=== PATIENT | male | born 1985 | race Hispanic/Latino ===

== ENCOUNTER 2021-06-20 15:30 | Observation (INO) | payer SELFPAY ==
[2021-06-20] MEDS ORDERED: MORPHINE 4 MG/1 ML INJ IV ONE (16:21)
[2021-06-20] MEDS ORDERED: SODIUM CHLORIDE 0.9% 1000 ML 1,000 ML IV ONE (16:21)
[2021-06-20] MEDS ORDERED: dexAMETHasone 20 MG/5 ML VIAL IV ONE (16:38)
--- NOTE | 2021-06-20 16:39 | Emergency Department Report ---
HPI - General Chief Complaint: Dental/Oral Time Seen by Provider: 06/20/21 16:17 - HPI HPI: This is a 36-year-old male presents to the emergency department with complaint of right-sided facial and neck pain and swelling that has been going on and getting progressively worse since yesterday. Patient denies any past medical history. He is a tobacco smoker. He has not taken anything for symptoms prior to presentation. He has pain and some difficulty with swallowing secondary to the facial and neck swelling. The facial swelling is mostly around the right lower jaw and travels down into the right side of his neck. No fever. No recent travel or sick contacts at home. ED Past Medical Hx - Past Medical History Previous Medical History?: No - Surgical History Past Surgical History?: No - Medications Home Medications: Home Medications Medication Instructions Recorded Confirmed Last Taken Type Clindamycin [Clindamycin CAP] 300 mg PO Q6H #28 capsule 06/20/21 Unknown Rx Sulfamethoxazole/Trimethoprim 1 each PO BID #14 tablet 06/20/21 Unknown Rx [Bactrim DS TAB] ED Review of Systems ROS: Stated complaint: Facial Swelling Other details as noted in HPI Comment: All other systems reviewed and negative Constitutional: denies: chills, fever Eyes: denies: eye pain, vision change ENT: throat pain, other (right sided facial and neck pain/swelling). denies: ear pain Respiratory: denies: cough, shortness of breath Cardiovascular: denies: chest pain, palpitations Gastrointestinal: denies: abdominal pain, vomiting Musculoskeletal: denies: back pain, arthralgia Skin: denies: rash, lesions Neurological: denies: headache, weakness Physical Exam - Physical Exam Vital Signs: Vital Signs 06/20/21 15:31 Temperature 97.1 F L Pulse Rate 106 H Respiratory 16 Rate O2 Sat by Pulse 100 Oximetry Physical Exam: GENERAL: The patient is well-developed well-nourished. HENT: Normocephalic. Atraumatic. Patient has moist mucous membranes. Poor dentition. No drooling or trismus. There is tenderness to palpation and swelling along the right mandible. EYES: Extraocular motions are intact. NECK: Supple. Trachea is midline. There is tenderness to palpation and swelling to the right superior lateral, submandibular and submental portions of the neck. CHEST/LUNGS: Clear to auscultation. There is no respiratory distress noted. HEART/CARDIOVASCULAR: Regular. There is mild tachycardia. There is no murmur. ABDOMEN: Abdomen is soft, nontender. Patient has normal bowel sounds. SKIN: Skin is warm and dry. NEURO: The patient is awake, alert, and oriented. The patient is cooperative. The patient has no focal neurologic deficits. Normal speech. MUSCULOSKELETAL: There is no tenderness or deformity. There is no limitation range of motion. ED Course Vital Signs 06/20/21 15:31 Temperature 97.1 F L Pulse Rate 106 H Respiratory 16 Rate O2 Sat by Pulse 100 Oximetry ED Medical Decision Making - Lab Data Result diagrams: 06/20/21 16:42 06/20/21 16:42 Lab Results 06/20/21 06/20/21 Range/Units 16:42 16:42 WBC 16.2 H (4.5-11.0) K/mm3 RBC 4.26 (3.65-5.03) M/mm3 Hgb 12.8 (11.8-15.2) gm/dl Hct 40.2 (35.5-45.6) % MCV 95 H (84-94) fl MCH 30 (28-32) pg MCHC 32 (32-34) % RDW 13.1 L (13.2-15.2) % Plt Count 222 (140-440) K/mm3 Lymph % (Auto) 8.3 L (13.4-35.0) % Castro % (Auto) 7.4 H (0.0-7.3) % Eos % (Auto) 0.6 (0.0-4.3) % Baso % (Auto) 0.2 (0.0-1.8) % Lymph # (Auto) 1.3 (1.2-5.4) K/mm3 Castro # (Auto) 1.2 H (0.0-0.8) K/mm3 Eos # (Auto) 0.1 (0.0-0.4) K/mm3 Baso # (Auto) 0.0 (0.0-0.1) K/mm3 Seg Neutrophils % 83.5 H (40.0-70.0) % Seg Neutrophils # 13.6 H (1.8-7.7) K/mm3 Sodium 135 L (137-145) mmol/L Potassium 3.8 (3.6-5.0) mmol/L Chloride 101.3 (98-107) mmol/L Carbon Dioxide 23 (22-30) mmol/L Anion Gap 15 mmol/L BUN 9 (9-20) mg/dL Creatinine 1.0 (0.8-1.3) mg/dL Estimated GFR > 60 ml/min BUN/Creatinine Ratio 9 % Glucose 139 H (75-100) mg/dL Calcium 8.5 (8.4-10.2) mg/dL - EKG Data -: EKG Interpreted by Sc EKG shows normal: sinus rhythm, axis, intervals, QRS complexes, ST-T waves Rate: normal - EKG Data When compared to previous EKG there are: previous EKG unavailable Interpretation: normal EKG - Radiology Data Radiology results: report reviewed CT facial bones w con INDICATION: right sided facial jaw swelling. TECHNIQUE: CT face. All CT scans at this location are performed using CT dose reduction for ALARA by means of automated exposure control. COMPARISON: None. FINDINGS: Facial bones: Central midface: Nasal bones: No fracture; perpendicular plate of ethmoid: No fracture; no soft tissue swelling around the nasal septal cartilage Nasoorbitoethmoid: Normal Lateral midface: Orbit: Normal Zygomaticomaxillary complex: Normal Zygomatic arch: Normal Mandible: Multiple root abscesses any: No fracture TMJ: Sinuses: Paranasal sinuses and mastoid air cells are essentially clear. Orbits: Globes are intact. Additional findings:No other significant abnormality. IMPRESSION: No fracture in the facial bones Soft tissue swelling on the right side CT NECK WITH CONTRAST HISTORY: COMPARISON: Right-sided neck control swelling TECHNIQUE: Routine CT of the neck is performed following intravenous contrast. All CT scans at this location are performed using CT dose reduction for ALARA by means of automated exposure control CONTRAST: 100 mL Omnipaque 300 FINDINGS: Soft tissue swelling on the right side of the neck; swollen platysma; subcutaneous fatty stranding; reactive lymph nodes in the level 1B; soft tissue thickening in the right sublingual space with focal air bubble; multiple root abscesses; Skull Base: No significant abnormality. Parotid, Carotid, Retropharyngeal, Prevertebral, Pharyngeal Mucosal, and [employer] Spaces: Tonsillar fossa are normal; no tonsillar/peritonsillar abscess; epiglottis is normal; uvula is normal Airway: Patent and without significant abnormality. Lymphatics: Reactive lymph nodes in the neck bilaterally at level 1, level 2, level 3, level 4 and level 5. Vasculature: No significant abnormality. Osseous Structures: No significant abnormality Additional findings: None. IMPRESSION: Phlegmon in the right sublingual space extending underneath the mandible to the buccal surface; cellulitis in the subcutaneous tissue; no abscess formation; multiple root abscesses bilaterally - Medical Decision Making This patient presents to the emergency department with a complaint of pain and swelling to the right side of the jaw and right side of the neck that has been going on since yesterday. On examination there is no drooling or trismus but he does have visible swelling to these areas that are tender to palpation. Labs show a leukocytosis about 16,000, otherwise the rest of the labs are unremarkable. CT scan of the facial bones shows some soft tissue swelling along the right mandible. CT scan of the neck with IV contrast shows a phlegmon to the right sublingual space going to the buccal space, soft tissue cellulitis, but no visible abscess. The patient was given IV fluid resuscitation, IV antibiotics and IV analgesia. Initially I spoke to the hospitalist, Dr. Camargo, who agreed to admit the patient to the hospital for IV antibiotics and further evaluation. Initially the patient agreed to this but then called me back and told me that he is leaving AGAINST MEDICAL ADVICE. We had a long discussion regarding his labs, imaging studies, and the need for IV antibiotics as there could be concern for this to worsen and cause sepsis, a neck or facial abscess that needs drainage or surgery, Luis Angel's angina, and multiple other concerns or possible complications. However the patient is awake, alert, oriented, AAO x3, and has a normal decision-making capacity. Therefore, despite understanding the risks has decided to leave AGAINST MEDICAL ADVICE. I am still treating him with antibiotics. The patient understands that he can return to the emergency department at any time if he changes his mind about further evaluation and treatment, or with any acute distress. Critical Care Time: No Critical care attestation.: If time is entered above; I have spent that time in minutes in the direct care of this critically ill patient, excluding procedure time. ED Disposition Clinical Impression: Jaw swelling, Neck swelling, Cellulitis of neck, Phlegmon Disposition: LEFT AGAINST MEDICAL ADVICE Is pt being admited?: No Time of Disposition: 19:55
[2021-06-20 17:05] LABS: Basophils % (Auto) 0.2 % (0.0-1.8); Eosinophils # (Auto) 0.1 K/mm3 (0.0-0.4); Eosinophils % (Auto) 0.6 % (0.0-4.3); Hematocrit 40.2 % (35.5-45.6); Hemoglobin 12.8 gm/dl (11.8-15.2); Lymphocytes # (Auto) 1.3 K/mm3 (1.2-5.4); Lymphocytes % (Auto) 8.3 % (13.4-35.0); Mean Corpuscular HGB Conc 32 % (32-34); Mean Corpuscular Volume 95 fl (84-94); Monocytes # (Auto) 1.2 K/mm3 (0.0-0.8); Monocytes % (Auto) 7.4 % (0.0-7.3); Platelet Count 222 K/mm3 (140-440); Red Blood Count 4.26 M/mm3 (3.65-5.03); Red Cell Distribution Width 13.1 % (13.2-15.2)
[2021-06-20 17:20] LABS: BUN/Creatinine Ratio 9; Blood Urea Nitrogen 9 mg/dL (9-20); Calcium 8.5 mg/dL (8.4-10.2); Hemolysis Index 12
--- NOTE | 2021-06-20 19:30 | Cat Scan Report ---
CT NECK WITH CONTRAST HISTORY: COMPARISON: Right-sided neck control swelling TECHNIQUE: Routine CT of the neck is performed following intravenous contrast. All CT scans at [facility] are performed using CT dose reduction for ALARA by means of automated exposure control CONTRAST: 100 mL Omnipaque 300 FINDINGS: Soft tissue swelling on the right side of the neck; swollen platysma; subcutaneous fatty stranding; r eactive lymph nodes in the level 1B; soft tissue thickening in the right sublingual space with focal air bubble; multiple root abscesses; Skull Base: No significant abnormality. Parotid, Carotid, Retropharyngeal, Prevertebral, Pharyngeal Mucosal, and Microfilm Mounter Spaces: Tonsillar fossa are normal; no tonsillar/peritonsillar abscess; epiglottis is normal; uvula is normal Airway: Patent and without significant abnormality. Lymphatics: Reactive lymph nodes in the neck bilaterally at level 1, level 2, level 3, level 4 and le roseline 5. Vasculature: No significant abnormality. Osseous Structures: No significant abnormality Additional findings: None. IMPRESSION: Phlegmon in the right sublingual space extending underneath the mandible to the buccal surface; cell ulitis in the subcutaneous tissue; no abscess formation; multiple root abscesses bilaterally Signer Name: Ghazala Stoddard MD Signed: 06/20/2021 7:26 PM Workstation Name: [email or web address]
--- NOTE | 2021-06-20 19:33 | Cat Scan Report ---
CT facial bones w con INDICATION: right sided facial jaw swelling. TECHNIQUE: CT face. All CT scans at this location are performed using CT dose reduction for ALARA by means of automated exposure control. COMPARISON: None. FINDINGS: Facial bones: Central midface: Nasal bones: No fracture; perpendicular plate of ethmoid: No fracture; no soft tissue swelling around the nasal septal cartilage Nasoorbitoethmoid: Normal Lateral midface: Orbit: Normal Zygomaticomaxillary complex: Normal Zygomatic arch: Normal Mandible: Multiple root abscesses any: No fracture TMJ: Sinuses: Paranasal sinuses and mastoid air cells are essentially clear. Orbits: Globes are intact. Additional findings:No other significant abnormality. IMPRESSION: No fracture in the facial bones Soft tissue swelling on the right side Signer Name: Ghazala Stoddard MD Signed: 06/20/2021 7:29 PM Workstation Name: [id number]
[2021-06-20 20:13] VITALS: BP 111/58
--- NOTE | 2021-06-21 14:21 | Event Note ---
Date: 06/20/21 Patient left AMA AGAINST MEDICAL ADVICE after being assigned to me within the next 30 minutes Patient not seen in an no history and physical was done
--- NOTE | 2021-06-22 08:39 | Electrocardiograph Report ---
[facility] Test Date: 2021-06-20 Test Time: 16:21:16 Pat Name: FABIENNE FERRARA Department: Room: [place] [address] Gender: M Assistant Media Planner: ELENA : 1985 Requested By: TAI TAMAYO Order Number: [id number] Reading MD: Bryant Chiu Measurements Intervals Hiram Rate: 68 P: 18 GA: 180 QRS: 58 QRSD: 107 T: 50 QT: 387 QTc: 412 Interpretive Statements Sinus rhythm No previous ECG available for comparison Electronically Signed On 06-22-2021 8:39:10 EST by Bryant Chiu
== END 2021-06-20 20:45 | disposition left against medical advice (07) ==
LOC: ED 15:30 → 3A 19:55
PROVIDERS: ADMIT Internal Medicine; ATTEND Internal Medicine
DX: L03.221 Cellulitis of neck (principal); L02.91 Cutaneous abscess, unspecified; R22.0 Localized swelling, mass and lump, head; R22.1 Localized swelling, mass and lump, neck
CPT/HCPCS: 36415; 70487; 70491; 80048; 85025; 87040; 93005; 96365; 96375; 99285; G0378; J1100; J2270; J7030; J7502; Q9967; Q0162

== ENCOUNTER 2021-06-22 10:49 | Emergency (ER) | payer SELFPAY ==
[2021-06-22] MEDS ORDERED: LACTATED RINGERS 1000 ML IV SOLN IV ONE (11:31)
[2021-06-22] MEDS ORDERED: MORPHINE 4 MG/1 ML INJ IV ONE ×2 (11:31→13:20)
[2021-06-22] MEDS ORDERED: AMPICILLIN/SULBACTA 3GM/100ML 3 GM/100 ML BAG IV ONE (11:31)
--- NOTE | 2021-06-22 11:34 | Emergency Department Report ---
ED General Adult HPI - General Chief complaint: Dental/Oral Stated complaint: FACE SWOLLEN Time Seen by Provider: 06/22/21 11:03 Source: patient Mode of arrival: Ambulatory Limitations: No Limitations - History of Present Illness Initial comments: The patient is a 36-year-old gentleman. He is not known to myself previously. He is not COVID-19 vaccinated. He was seen in this department 2 days ago with complaint of nontraumatic facial pain and swelling. He had a CT scan of the face and neck, which demonstrated platysmal swelling, dental abscesses, and phlegmon. He was offered admission, and signed out AGAINST MEDICAL ADVICE. He was discharged with Bactrim, and clindamycin. He got his antibiotics filled yesterday. He took a total of 4 doses of antibiotics. He presents to the ER today with a complaint of persistent facial pain, neck pain and neck swelling. Denies fever, severe headache, chest pain, abdominal pain, shortness of breath. He is able to tolerate his secretions. His symptoms are constant. They worsen with palpation. They decreased with rest and position. He reports dental pain over tooth number 30/31/32 from a few days ago. -: Gradual, days(s) Location: mouth, eyes, neck Radiation: neck Quality: aching Consistency: constant Improves with: rest Worsens with: movement - Related Data Previous Rx's Medication Instructions Recorded Last Taken Type Clindamycin [Clindamycin CAP] 300 mg PO Q6H #28 capsule 06/20/21 06/22/21 07:00 Rx Sulfamethoxazole/Trimethoprim 1 each PO BID #14 tablet 06/20/21 06/22/21 07:00 Rx [Bactrim DS TAB] Allergies Allergy/AdvReac Type Severity Reaction Status Date / Time No Known Allergies Allergy Verified 06/22/21 10:52 ED Review of Systems ROS: Stated complaint: FACE SWOLLEN Other details as noted in HPI Constitutional: malaise, weakness Eyes: denies: eye discharge ENT: throat pain, dental pain. denies: epistaxis Respiratory: denies: cough Cardiovascular: denies: chest pain Gastrointestinal: denies: abdominal pain Neurological: weakness Psychiatric: anxiety ED Past Medical Hx - Social History Smoking Status: Current Every Day Smoker Substance Use Type: None - Medications Home Medications: Home Medications Medication Instructions Recorded Confirmed Last Taken Type Clindamycin [Clindamycin CAP] 300 mg PO Q6H #28 capsule 06/20/21 06/22/21 07:00 Rx Sulfamethoxazole/Trimethoprim 1 each PO BID #14 tablet 06/20/21 06/22/21 07:00 Rx [Bactrim DS TAB] ED Physical Exam - General Limitations: Physical Limitation General appearance: alert, anxious, in distress - Head Head exam: Present: atraumatic, normocephalic - Eye Eye exam: Present: normal appearance, EOMI. Absent: nystagmus - ENT ENT exam: Present: mucous membranes moist, normal external ear exam, other (The sublingual space is swollen. There is brawny induration. The patient is not stridulous. The patient is speaking in full sentences. The right lateral face is swollen and tender.). Absent: normal exam - Neck Neck exam: Present: normal inspection, full ROM. Absent: tenderness, meningismus - Respiratory Respiratory exam: Present: normal lung sounds bilaterally. Absent: respiratory distress, wheezes, rales, rhonchi, stridor, decreased breath sounds - Cardiovascular Cardiovascular Exam: Present: normal rhythm, tachycardia, normal heart sounds. Absent: bradycardia, irregular rhythm, systolic murmur, diastolic murmur, rubs, gallop - GI/Abdominal GI/Abdominal exam: Present: soft. Absent: distended, tenderness, guarding, rebound, rigid, pulsatile mass - Rectal Rectal exam: Present: deferred - Extremities Exam Extremities exam: Present: normal inspection, full ROM, other (2+ pulses noted in the bilateral upper and lower extremities. There is no palpable cord. negative Homans sign. Muscular compartments are soft. The pelvis is stable.). Absent: pedal edema, calf tenderness - Back Exam Back exam: Present: normal inspection, full ROM. Absent: tenderness, CVA tenderness (R), CVA tenderness (L), paraspinal tenderness, vertebral tenderness - Neurological Exam Neurological exam: Present: alert, normal gait, other (No facial droop. Tongue midline. Extraocular movements intact bilaterally. Facial sensation intact to light touch in V1, V2, V3 distribution bilaterally. 5 and a 5 strength in 4 extremities. Sensation intact to light touch in 4 extremities.). Absent: motor sensory deficit - Psychiatric Psychiatric exam: Present: normal affect, normal mood, anxious - Skin Skin exam: Present: warm, dry, intact, normal color. Absent: rash ED Course Vital Signs 06/22/21 06/22/21 06/22/21 10:49 10:52 11:41 Temperature 97.5 F L 97.9 F Pulse Rate 108 H 102 H Respiratory 20 23 Rate Blood Pressure 131/73 131/73 Blood Pressure 133/88 [Left] O2 Sat by Pulse 100 100 Oximetry 06/22/21 06/22/21 06/22/21 11:45 12:00 12:14 Temperature Pulse Rate 88 Respiratory 18 11 L Rate Blood Pressure 136/71 Blood Pressure [Left] O2 Sat by Pulse 99 100 Oximetry 06/22/21 06/22/21 06/22/21 12:15 13:00 13:15 Temperature Pulse Rate 84 85 89 Respiratory 20 15 15 Rate Blood Pressure 136/71 135/84 136/71 Blood Pressure [Left] O2 Sat by Pulse 99 99 100 Oximetry - Reevaluation(s) Reevaluation #1: 06/22/21 14:33 Patient reassessed. Protecting airway. Awaiting transport. Multiple ambulance agencies have been contacted. First available transport is 6:00 PM. ED Medical Decision Making - Lab Data Result diagrams: 06/22/21 11:50 06/22/21 11:50 Vital Signs 06/22/21 06/22/21 06/22/21 10:49 11:41 12:00 Temperature 97.5 F L Pulse Rate 108 H 88 Respiratory 20 11 L Rate Blood Pressure 131/73 136/71 Blood Pressure 133/88 [Left] O2 Sat by Pulse 100 99 Oximetry Lab Results 06/22/21 06/22/21 06/22/21 Range/Units 11:50 11:50 11:50 WBC 18.0 H (4.5-11.0) K/mm3 RBC 4.15 (3.65-5.03) M/mm3 Hgb 12.7 (11.8-15.2) gm/dl Hct 39.4 (35.5-45.6) % MCV 95 H (84-94) fl MCH 31 (28-32) pg MCHC 32 (32-34) % RDW 12.9 L (13.2-15.2) % Plt Count 250 (140-440) K/mm3 Lymph % (Auto) 6.9 L (13.4-35.0) % [place] % (Auto) 9.7 H (0.0-7.3) % Eos % (Auto) 0.3 (0.0-4.3) % Baso % (Auto) 0.0 (0.0-1.8) % Lymph # (Auto) 1.2 (1.2-5.4) K/mm3 [place] # (Auto) 1.7 H (0.0-0.8) K/mm3 Eos # (Auto) 0.0 (0.0-0.4) K/mm3 Baso # (Auto) 0.0 (0.0-0.1) K/mm3 Seg Neutrophils % 83.1 H (40.0-70.0) % Seg Neutrophils # 14.9 H (1.8-7.7) K/mm3 PT 14.0 (12.2-14.9) Sec. INR 0.97 (0.87-1.13) APTT 36.7 H (24.2-36.6) Sec. Sodium 137 (137-145) mmol/L Potassium 3.7 (3.6-5.0) mmol/L Chloride 102.3 (98-107) mmol/L Carbon Dioxide 22 (22-30) mmol/L Anion Gap 16 mmol/L BUN 8 L (9-20) mg/dL Creatinine 0.7 L (0.8-1.3) mg/dL Estimated GFR > 60 ml/min BUN/Creatinine Ratio 11 % Glucose 96 (75-100) mg/dL Lactic Acid (0.7-2.0) mmol/L Calcium 8.4 (8.4-10.2) mg/dL Total Bilirubin 0.40 (0.1-1.2) mg/dL AST 42 H (5-40) units/L ALT 44 (7-56) units/L Alkaline Phosphatase 92 (35-129) units/L Total Creatine Kinase 131 (55-170) units/L Total Protein 6.9 (6.3-8.2) g/dL Albumin 3.5 L (3.9-5) g/dL Albumin/Globulin Ratio 1.0 % 06/22/ Range/Units 11:50 WBC (4.5-11.0) K/mm3 RBC (3.65-5.03) M/mm3 Hgb (11.8-15.2) gm/dl Hct (35.5-45.6) % MCV (84-94) fl MCH (28-32) pg MCHC (32-34) % RDW (13.2-15.2) % Plt Count (140-440) K/mm3 Lymph % (Auto) (13.4-35.0) % [place] % (Auto) (0.0-7.3) % Eos % (Auto) (0.0-4.3) % Baso % (Auto) (0.0-1.8) % Lymph # (Auto) (1.2-5.4) K/mm3 [place] # (Auto) (0.0-0.8) K/mm3 Eos # (Auto) (0.0-0.4) K/mm3 Baso # (Auto) (0.0-0.1) K/mm3 Seg Neutrophils % (40.0-70.0) % Seg Neutrophils # (1.8-7.7) K/mm3 PT (12.2-14.9) Sec. INR (0.87-1.13) APTT (24.2-36.6) Sec. Sodium (137-145) mmol/L Potassium (3.6-5.0) mmol/L Chloride (98-107) mmol/L Carbon Dioxide (22-30) mmol/L Anion Gap mmol/L BUN (9-20) mg/dL Creatinine (0.8-1.3) mg/dL Estimated GFR ml/min BUN/Creatinine Ratio % Glucose (75-100) mg/dL Lactic Acid 0.60 L (0.7-2.0) mmol/L Calcium (8.4-10.2) mg/dL Total Bilirubin (0.1-1.2) mg/dL AST (5-40) units/L ALT (7-56) units/L Alkaline Phosphatase (35-129) units/L Total Creatine Kinase (55-170) units/L Total Protein (6.3-8.2) g/dL Albumin (3.9-5) g/dL Albumin/Globulin Ratio % - Radiology Data Radiology results: pending, report reviewed, image reviewed [facility], [place] [address] [place] [address] Cat Scan Report Signed Patient: FABIENNE FERRARA MR#: [id number] : 1985 Acct:[id number] Age/Sex: 36 / M ADM Date: 06/20/21 Loc: ED Attending Dr: Ordering Physician: RASTA ACOSTA DO Date of Service: 06/20/21 Procedure(s): CT neck w con Accession Number(s): [id number] cc: RASTA ACOSTA DO CT NECK WITH CONT RAST HISTORY: COMPARISON: Right-sided neck control swelling TECHNIQUE: Routine CT of the neck is performed following intravenous contrast. All CT scans at this location are performed using CT dose reduction for ALARA by means of automated exposure control CONTRAST: 100 mL Omnipaque 300 FINDINGS: Soft tissue swelling on the right side of the neck; swollen platysma; subcutaneous fatty stranding; reactive lymph nodes in the level 1B; soft tissue thickening in the right sublingual space with focal air bubble; multiple root abscesses; Skull Base: No significant abnormality. Parotid, Carotid, Re tropharyngeal, Prevertebral, Pharyngeal Mucosal, and [employer]er Spaces: Tonsillar fossa are normal; no tonsillar/peritonsillar abscess; epiglottis is normal; uvula is normal Airway: Patent and without significant abnormality. Lymphatics: Reactive lymph nodes in the neck bilaterally at level 1, level 2, level 3, level 4 and level 5. Vasculature: No significant abnormality. Osseous Structures: No significant abnormality Additional findings: None. IMPRESSION: Phlegmon in the right sublingual space extending underneath the mandible to the buccal surface; cellulitis in the subcutaneous tissue; no abscess formation; multiple root abscesses bilaterally Signer Name: Ghazala Stoddard MD Signed: 06/20/2021 7:26 PM Workstation Name: [id number] Transcribed By: BS Dictated By: Ghazala Puente MD Electronically Authenticated By: Ghazala Puente MD Signed Date/Time: 06/20/211925 DD/ 18 Age/Sex: 36 / M ADM Date: 06/20/21 Loc: ED Attending Dr: Ordering Physician: RASTA ACOSTA DO Date of Service: 06/20/21 Procedure(s): CT facial bones w con Accession Number(s): [id number] cc: RASTA ACOSTA DO CT facial bones w con INDICATION: right sided facial jaw swelling. TECHNIQUE: CT face. All CT scans at this location are performed using CT dose reduction for ALARA by means of automated exposure control. COMPARISON: None. FINDINGS: Facial bones: Central midface: Nasal bones: No fracture; perpendicular plate of ethmoid: No fracture; no soft tissue swelling around the nasal septal cartilage Nasoorbitoethmoid: Normal Lateral midface: Orbit: Normal Zygomaticomaxillary complex: Normal Zygomatic arch: Normal Mandible: Multiple root abscesses any: No fracture TMJ: Sinuses: Paranasal sinuses and mastoid air cells are essentially clear. Orbits: Globes are intact. Additional findings:No other significant abnormality. IMPRESSION: No fracture in the facial bones Soft tissue swelling on the right side Signer Name: Ghazala Stoddard MD Signed: 06/20/2021 7:29 PM Workstation Name: [id number] Transcribed By: GARRETT Dictated By: Ghazala Puente MD Electronically Authenticated By: Ghazala Puente MD Signed Date/Time: 06/20/211928 DD/ 25 - Medical Decision Making Differential diagnosis, including but not limited to: Sepsis, abscess, phlegmon, cellulitis, Eslie's angina Assessment and plan: 36-year-old gentleman, who 2 days ago met sepsis criteria, manifest through tachycardia and leukocytosis, with CT scan of the neck which demonstrated phlegmon, micro abscesses, and oral cellulitis. The patient is awake, alert, oriented but anxious, protecting his airway, and he is not stridulous at this time. Discussed history, physical, laboratory studies and imaging studies with oral surgeon at [facility] [place], Dr. Ham. She advises that she can consult on this patient/accept this patient as a transfer. She further advises that this is less likely to be a Elsie's angina, and more likely to be an oral/dental cellulitis, with phlegmon formation. Repeat laboratory studies pending, have also requested that CT scan of the neck from 2 days ago be scanned onto a disc and transferred with the patient. Discussed history, physical, laboratory studies and imaging studies with the ER physician, Dr. Hyde. Patient is accepted to [facility]. This patient has an emergent medical/surgical condition which cannot be definitively managed at this hospital, as we do not have oral surgery/OMFS available for consultation. Discussed need for transfer with patient, he articulated understanding. All questions answered. Currently awaiting ambulance to come by and pick the patient up. Have repeated laboratory studies. Critical Care Time: Yes Critical care time in (mins) excluding proc time.: 35 Critical care attestation.: If time is entered above; I have spent that time in minutes in the direct care of this critically ill patient, excluding procedure time. ED Disposition Clinical Impression: Phlegmon, Cellulitis of neck, Neck swelling, Jaw swelling Disposition: 02 SHORT TERM HOSPITAL Is pt being admited?: No Does the pt Need Aspirin: No Condition: Serious Referrals: PRIMARY CARE, [Primary Care Provider] - 3-5 Days
[2021-06-22 12:29] LABS: Alanine Aminotransferase 44 units/L (7-56); Albumin 3.5 g/dL (3.9-5); BUN/Creatinine Ratio 11; Blood Urea Nitrogen 8 mg/dL (9-20); Calcium 8.4 mg/dL (8.4-10.2); Eosinophils % (Auto) 0.3 % (0.0-4.3); Hematocrit 39.4 % (35.5-45.6); Hemoglobin 12.7 gm/dl (11.8-15.2); Hemolysis Index 7; Lymphocytes # (Auto) 1.2 K/mm3 (1.2-5.4); Lymphocytes % (Auto) 6.9 % (13.4-35.0); Mean Corpuscular HGB Conc 32 % (32-34); Mean Corpuscular Volume 95 fl (84-94); Monocytes # (Auto) 1.7 K/mm3 (0.0-0.8); Monocytes % (Auto) 9.7 % (0.0-7.3); Platelet Count 250 K/mm3 (140-440); Red Blood Count 4.15 M/mm3 (3.65-5.03); Red Cell Distribution Width 12.9 % (13.2-15.2)
[2021-06-22 12:37] LABS: INR 0.97 (0.87-1.13)
[2021-06-22 12:38] LABS: Partial Thromboplastin Time 36.7 Sec. (24.2-36.6)
[2021-06-22 17:17] VITALS: BP 137/82
== END 2021-06-22 17:45 | disposition short-term general hospital (02) ==
LOC: ED 10:49
DX: L02.11 Cutaneous abscess of neck (principal); L03.221 Cellulitis of neck; F17.200 Nicotine dependence, unspecified, uncomplicated; R79.1 Abnormal coagulation profile; R22.0 Localized swelling, mass and lump, head; Z79.899 Other long term (current) drug therapy
CPT/HCPCS: 36415; 80053; 82140; 82550; 85025; 85610; 85730; 87040; 96361; 96365; 96375; 96376; 99291; J0295; J2270; J7120; 99285; J3490